=== PATIENT | female | born 1960 | race Caucasian/White ===

== ENCOUNTER 2016-06-29 21:51 | Emergency (ER) | payer OTHER ==
[~2016-06-29] VITALS: Ht 157.5 cm; Wt 74.8 kg
--- NOTE | 2016-06-29 22:39 | NUR ---
PT WALKED INTO ER C/OBURNING UPON URINATION, PT IS ALERT, ORIENTED X 4, NO RESP DISTRESS NOTED OR REPORTED UPON ASSESSMENT... MD AT BEDSIDE...
[2016-06-29] MEDS ORDERED: VALS160T2 PO (22:51)
[2016-06-29] MEDS ORDERED: LANS30CA10 PO (22:51)
[2016-06-29 22:59] LABS: *BILIRUBIN,URIN NEGATIVE (NEGATIVE); *BLOOD, URINE Trace-intact (NEGATIVE); *CLARITY,URINE CLOUDY (CLEAR); *COLOR,URINE YELLOW (YELLOW); *KETONES,URINE NEGATIVE (NEGATIVE); *PROTEIN,URINE NEGATIVE (NEGATIVE); *UROBILINOGEN,URINE 0.2 E.U./dl (NORMAL); NITRITE, URINE NEGATIVE (NEGATIVE); PH,URINE 6.5 (5.0-8.0); UGLUCOSE NEGATIVE (NEGATIVE)
[2016-06-29 23:01] LABS: LEUKOCYTE ESTERASE ,URINE TRACE (NEGATIVE)
[2016-06-29 23:05] LABS: BACTERIA,URINE MODERATE /HPF (NONE SEEN); SQUAMOUS EPITHELIAL CELL,UR MODERATE /HPF (NONE SEEN); WBC,URINE 20-50 /HPF (0-3)
--- NOTE | 2016-06-29 23:26 | NUR ---
Patient discharged to home in stable conditon. Written and verbal after care instructions given. Patient verbalizes understanding of instructions. Pt walked out of ER unassisted with belongings and daughter at side...
[2016-06-29 23:28] VITALS: BP 126/97
[2016-06-29] MEDS ORDERED: SULFAMETH/TRIMETH 800/160 MG TABLET PO ONE (23:30)
[2016-06-29] MEDS ORDERED: PHENAZOPYRIDINE HCL 100 MG TABLET PO ONE (23:30)
[2016-06-29] MEDS ORDERED: PHENAZOPYRIDINE HCL 100 MG TABLET ONE (23:36)
[2016-06-29] MEDS ORDERED: SULFAMETH/TRIMETH 800/160 MG TABLET ONE (23:37)
== END 2016-06-29 23:29 | disposition home or self-care (01) ==
LOC: ER 21:51
DX: N39.0 Urinary tract infection, site not specified (principal); I10 Essential (primary) hypertension
CPT/HCPCS: A4663